=== PATIENT | female | born 1995 | race American Indian/Alaskan Native ===

== ENCOUNTER 2022-03-25 10:13 | Emergency (ER) | payer SELFPAY ==
[2022-03-25] MEDS ORDERED: diphenhydrAMINE 25 MG CAP PO ONE (10:29)
[2022-03-25] MEDS ORDERED: FAMOTIDINE 20 MG TAB PO ONE (11:30)
[2022-03-25] MEDS ORDERED: predniSONE 20 MG TAB PO ONE (11:30)
--- NOTE | 2022-03-25 11:30 | Emergency Department Report ---
HPI - General Chief Complaint: Allergic Reaction PUI?: No Time Seen by Provider: 03/25/22 10:30 - HPI HPI: Patient is a 27-year-old female that comes to the emergency room with itching after taking aspirin. She states she has had aspirin in the past and not had a reaction to it. She denies taking anything else that would have caused an allergic reaction. ABCs intact. Vital signs stable. ED Past Medical Hx - Past Medical History Previous Medical History?: No - Surgical History Past Surgical History?: No - Family History Family history: no significant - Social History Smoking Status: Never Smoker Substance Use Type: None - Medications Home Medications: Home Medications Medication Instructions Recorded Confirmed Last Taken Type Famotidine [Pepcid] 20 mg PO DAILY #30 tablet 03/25/22 Unknown Rx diphenhydrAMINE [Benadryl CAP] 25 mg PO Q8HR PRN #20 capsule 03/25/22 Unknown Rx predniSONE [Deltasone] 20 mg PO DAILY #5 tablet 03/25/22 Unknown Rx ED Review of Systems ROS: Stated complaint: ALLERGIX RX Other details as noted in HPI Comment: All other systems reviewed and negative Physical Exam - Physical Exam Vital Signs: Vital Signs 03/25/22 10:21 Temperature 98.1 F Pulse Rate 84 Respiratory 18 Rate Blood Pressure 177/69 [Left] O2 Sat by Pulse 99 Oximetry General: Alert and oriented x4. ABCs intact. Lungs clear to auscultation. S1-S2. No urticaria. No obvious hives. No lymphadenopathy. Moves all extremities well. No focal deficit. Abdomen soft nontender. ED Course Vital Signs 03/25/22 10:21 Temperature 98.1 F Pulse Rate 84 Respiratory 18 Rate Blood Pressure 177/69 [Left] O2 Sat by Pulse 99 Oximetry ED Medical Decision Making - Medical Decision Making Vital Signs 03/25/22 10:21 Temperature 98.1 F Pulse Rate 84 Respiratory 18 Rate Blood Pressure 177/69 [Left] O2 Sat by Pulse 99 Oximetry No hypotension, tachycardia or hypoxia. Medicated with prednisone, Pepcid and Benadryl. Patient reports some relief Patient advised not to take aspirin or aspirin containing products Ambulating without shortness of breath or hypoxia Patient being discharged home with discharge plan of care including diet, activity, medications and follow-up. She verbalizes understanding of plan of care - Differential Diagnosis Allergic reaction presumed to be related to aspirin Critical care attestation.: If time is entered above; I have spent that time in minutes in the direct care of this critically ill patient, excluding procedure time. ED Disposition Clinical Impression: Allergic reaction Qualifiers: Encounter type: initial encounter Qualified Code(s): T78.40XA - Allergy, unspecified, initial encounter Disposition: 01 HOME / SELF CARE / HOMELESS Is pt being admited?: No Does the pt Need Aspirin: No Condition: Stable Instructions: Allergies, Adult, [id number] Additional Instructions: Diet and activity as tolerated. You should avoid aspirin and all aspirin containing products Make sure you report this to all your medical doctors and on medical encounters Medicines as ordered today Follow-up with PCP in 48 hours for recheck. Referrals been given below. A projects manager or cargo and ramp services manager can help you to be sure that this was actually an aspirin allergy and not something else. Referrals: SKYLER PAN MD [Staff Physician] - 3-5 Days Forms: Work/School Release Form(ED) Time of Disposition: 11:36
[2022-03-25 12:35] VITALS: BP 122/82
== END 2022-03-25 12:33 | disposition home or self-care (01) ==
LOC: ED 10:13
DX: T78.40XA Allergy, unspecified, initial encounter (principal); Z88.6 Allergy status to analgesic agent; Z79.899 Other long term (current) drug therapy; X58.XXXA Exposure to other specified factors, initial encounter
CPT/HCPCS: 99282